=== PATIENT | female | born 1980 | race Caucasian/White ===

== ENCOUNTER 2016-07-22 12:24 | Emergency (ER) | payer OTHER ==
[2016-07-22 14:56] VITALS: BP 106/60
--- NOTE | 2016-07-22 15:34 | UC ---
Throat Pain/Nasal Martinez HPI - HPI Summary HPI Summary: tongue looks like there is a yellowish coating on it. Not painful, but she does have a white spot and some soreness back further in throat. Exposed to an infant with thrush, she is worried about that. NO fever. No URI symptoms otherwise. No recent antibiotics. No immunosuppressants - History of Current Complaint Chief Complaint: UCGeneralIllness Stated Complaint: ORAL COMPLAINT Time Seen by Provider: 07/22/16 14:57 Hx Obtained From: Patient Hx Last Menstrual Period: CURRENT ?: No Onset/Duration: Gradual Onset Severity: Mild Cough: Nonproductive Associated Signs & Symptoms: Positive: Dysphagia - mild - Epiglottits Risk Factors Epiglottis Risk Factors: Negative - Allergies/Home Medications Allergies/Adverse Reactions: Allergies Allergy/AdvReac Type Severity Reaction Status Date / Time Sulfa Drugs Allergy Intermediate Vomiting Verified 07/22/16 14:56 Naproxen Allergy Mild GI Upset Verified 07/22/16 14:56 Latex Allergy Rash Verified 07/22/16 14:56 PMH/Surg Hx/FS Hx/Imm Hx Previously Healthy: Yes Endocrine History Of: Denies: Diabetes, Thyroid Disease Cardiovascular History Of: Denies: Cardiac Disorders, Hypertension, Pacemaker/ICD Respiratory History Of: Denies: COPD, Asthma GI/ History Of: Denies: Ulcer Neurological History Of: Reports: Migraine - A TEEN FOLLOWING A CONCUSSION - Surgical History Surgical History: Yes Surgery Procedure, Year, and Place: 10/2014 LEFT KNEE ARTHROSCOPIC MENISCUS REPAIR, CHONDROPLASTY, MEDIAL PLICA EXCISION, [facility] [place]. 08/2015 LEFT KNEE ARTHROSCOPIC PARTIAL MEDIAL AND LATERAL MENISCECTOMY WITH BIOCARTILAGE TO MEDIAL FEMORAL CONDYLE, REMOVAL OF FOREIGN BODIES, [facility] [place]. 05/09 - left knee scar tissue removal - Family History Known Family History: Positive: None, Other - positive FM for URI - Social History Occupation: Employed Full-time Lives: With Family Alcohol Use: None Substance Use Type: None Smoking Status (MU): Light Every Day Tobacco Smoker Type: Cigarettes Amount Used/How Often: 1 ppd for about 20 years Length of Time of Smoking/Using Tobacco: APPROX 20 YEARS Have You Smoked in the Last Year: Yes When Did the Patient Quit Smoking/Using Tobacco: 05/02/2016 PATCH USED OCCASSIONALLY Household Exposure Type: Cigarettes - Immunization History Most Recent Influenza Vaccination: not this season Review of Systems Constitutional: Negative Skin: Negative Eyes: Negative ENT: Other - tongue coating, white spot on gums Respiratory: Negative Cardiovascular: Negative Gastrointestinal: Negative Genitourinary: Negative Motor: Negative Neurovascular: Negative Musculoskeletal: Negative Neurological: Negative Psychological: Negative All Other Systems Reviewed And Are Negative: Yes Physical Exam Triage Information Reviewed: Yes Appearance: Well-Appearing, No Pain Distress, Well-Nourished Vital Signs: Initial Vital Signs Temp 99.4 F 07/22/16 14:51 Pulse 63 07/22/16 14:51 Resp 16 07/22/16 14:51 BP 106/60 07/22/16 14:51 Pulse Ox 98 07/22/16 14:51 Vital Signs Reviewed: Yes Eye Exam: Normal ENT: Positive: Hearing grossly normal, Pharynx normal, TMs normal, Other: - one tiny white spot behind left lower molar; looks like a spot of mucus, but when wiped away it returns. ? small draining sore? Tongue has a yellowish, thick coating. No redness. No bleeding. Not tender. Negative: Tonsillar swelling, Tonsillar exudate, Trismus, Muffled/hoarse voice Throat Pain/Nasal Course/Dx - Differential Dx/Diagnosis Provider Diagnoses: coated tongue Discharge - Discharge Plan Condition: Stable Disposition: HOME Prescriptions: Clotrimazole SELMA* [Mycelex Selma*] 10 mg MT SEE INSTRUCTIONS #20 selma Referrals: Manda Sanchez NP [Primary Care Provider] - Additional Instructions: Your tongue appears to have a "coating" that is common with minor upper respiratory illnesses. The thickened, whitish yellow discoloration will resolve itself as the illness goes on. You can try sucking on clotrimazole lozenges
== END 2016-07-22 15:40 | disposition home or self-care (01) ==
LOC: UCCORT 12:24
DX: K14.3 Hypertrophy of tongue papillae (principal); R13.10 Dysphagia, unspecified; Z88.6 Allergy status to analgesic agent; Z88.2 Allergy status to sulfonamides; F17.210 Nicotine dependence, cigarettes, uncomplicated
CPT/HCPCS: 87651; 99212; G0463

== ENCOUNTER 2016-09-17 16:44 | Emergency (ER) | payer OTHER ==
[2016-09-17 17:01] VITALS: BP 108/71
--- NOTE | 2016-09-17 17:04 | UC ---
Cardiac HPI - HPI Summary HPI Summary: chest pain multiple times since 09/14/16. maximum time duration 10minutes. was diaphoretic with the CP. Pain awoke her from sleep 0130 09/16/16. Today pain radiates to left arm which feels "sore". No fever, no cough, no URI sxs. No hx DVT. Had left knee surg Apr 2016. No calf pain. Tried pepto bismol without relief. Pt with hx heart murmur, does not know if it is MVP or not. - History of Current Complaint Chief Complaint: UCChestPain Stated Complaint: CHEST PAIN Time Seen by Provider: 09/17/16 16:47 Hx Obtained From: Patient Onset/Duration: Gradual Onset, Lasting Days, Still Present Timing: Intermittent Episodes Lasting: - 10 minutes Initial Severity: Moderate Current Severity: Moderate Pain Intensity: 0 Chest Pain Location: Discrete at:, Left Anterior Character: Sharp/Stabbing Aggravating: Nothing Alleviating: Nothing Associated Signs & Symptoms: Positive: Chest Pain, Recent Stress, Diaphoresis. Negative: Numbness, Tingling, SOB, Fever, Cough, Calf Pain/Swelling - Risk Factors Pulmonary Embolism Risk Factors: Smoking Cardiac Risk Factors: Smoking Atrial Fibrillation: Negative TAD Risk Factors: Smoking AMI/ACS Risk Factors: Smoking - Allergy/Home Medications Allergies/Adverse Reactions: Allergies Allergy/AdvReac Type Severity Reaction Status Date / Time Sulfa Drugs Allergy Intermediate Vomiting Verified 09/17/16 17:01 Naproxen Allergy Mild GI Upset Verified 09/17/16 17:01 Latex Allergy Rash Verified 09/17/16 17:01 Home Medications: Home Medications Bismuth Subsalicylate [Pepto Bismol] 262 mg PO DAILY PRN 09/17/16 [History Confirmed 09/17/16] PMH/Surg Hx/FS Hx/Imm Hx Endocrine History Of: Denies: Diabetes, Thyroid Disease Cardiovascular History Of: Reports: Cardiac Disorders - MURMUR Denies: Hypertension, Pacemaker/ICD Respiratory History Of: Denies: COPD, Asthma GI/ History Of: Denies: Ulcer Neurological History Of: Reports: Migraine - A TEEN FOLLOWING A CONCUSSION - Surgical History Surgical History: Yes Surgery Procedure, Year, and Place: 10/2014 LEFT KNEE ARTHROSCOPIC MENISCUS REPAIR, CHONDROPLASTY, MEDIAL PLICA EXCISION, [facility]. 08/2015 LEFT KNEE ARTHROSCOPIC PARTIAL MEDIAL AND LATERAL MENISCECTOMY WITH BIOCARTILAGE TO MEDIAL FEMORAL CONDYLE, REMOVAL OF FOREIGN BODIES, [facility]. 05/09 - left knee scar tissue removal - Family History Known Family History: Positive: Other - no fam hx DVT or PE - Social History Occupation: Employed Full-time - 2 jobs Lives: With Family Alcohol Use: None Substance Use Type: None Smoking Status (MU): Light Every Day Tobacco Smoker Type: Cigarettes Amount Used/How Often: OCCASSIONAL Length of Time of Smoking/Using Tobacco: APPROX 20 YEARS Have You Smoked in the Last Year: Yes When Did the Patient Quit Smoking/Using Tobacco: 05/02/2016 PATCH USED OCCASSIONALLY Household Exposure Type: Cigarettes - Immunization History Most Recent Influenza Vaccination: not this season Review of Systems Constitutional: Negative ENT: Negative Respiratory: Negative Cardiovascular: Chest Pain Gastrointestinal: Negative Musculoskeletal: Negative Neurological: Negative Psychological: Negative All Other Systems Reviewed And Are Negative: Yes Physical Exam Triage Information Reviewed: Yes Appearance: Well-Nourished, Ill-Appearing, Pain Distress Vital Signs: Initial Vital Signs Pulse 68 09/17/16 16:54 Resp 20 09/17/16 16:54 BP 108/71 09/17/16 16:54 Pulse Ox 99 09/17/16 16:54 Vital Signs Reviewed: Yes Eyes: Positive: Conjunctiva Clear ENT: Positive: Hearing grossly normal, Pharynx normal, TMs normal. Negative: Muffled/hoarse voice Neck: Positive: Supple, Nontender, No Lymphadenopathy Respiratory: Positive: Lungs clear, Normal breath sounds, No respiratory distress, No accessory muscle use Cardiovascular: Positive: RRR, No Murmur, Pulses Normal, Brisk Capillary Refill Abdomen Description: Positive: Nontender, No Organomegaly, Soft. Negative: Distended, Guarding, Hepatomegaly, McBurney's Point Tenderness, Peritoneal Signs , Pulsatile Mass, Splenomegaly Bowel Sounds: Positive: Present Musculoskeletal: Positive: Strength Intact, ROM Intact Neurological: Positive: Alert, Muscle Tone Normal Psychological Exam: Normal Skin Exam: Normal - Differential Diagnoses - Chest Pain Differential Diagnosis/HQI/PQRI: Acute VA, ACS, Angina, Chest Wall, GI Disease, Lower Respiratory Infection, Pulmonary Embolism - Clinical Impression Provider Diagnoses: acute chest pain. tobacco abuse disorder - Physician Notifications Time Discussed With Above Provider: 17:30 - Monica Mccain NP Instructed by Provider To: MD Will See In ED Discharge - Discharge Plan Condition: Stable Disposition: AGAINST MEDICAL ADVICE Discharge Disposition Comment: pt going by private car to [facility]
== END 2016-09-17 17:55 | disposition home or self-care (01) ==
LOC: UCCORT 16:44
DX: R07.89 Other chest pain (principal); Z88.6 Allergy status to analgesic agent; Z88.2 Allergy status to sulfonamides; F17.210 Nicotine dependence, cigarettes, uncomplicated
CPT/HCPCS: 93005; 99211; G0463

== ENCOUNTER 2017-02-16 11:28 | Emergency (ER) | payer OTHER ==
[2017-02-16 13:43] VITALS: BP 102/65
--- NOTE | 2017-02-16 14:15 | UC ---
Complaint Female HPI - HPI Summary HPI Summary: patient recently stopped taking the pill and has been having on and off bleeding for the past month. she is concerned with some itching and irritation due to the frequent tampon use. there is occasional burning with urination - History Of Current Complaint Chief Complaint: UCGU Stated Complaint: PERSONAL Time Seen by Provider: 02/16/17 13:46 Hx Obtained From: Patient Hx Last Menstrual Period: 12/27/16 - has had consistent bleeding since Onset/Duration: Sudden Onset, Lasting Weeks Timing: Lasting Weeks Severity Initially: Mild Severity Currently: Moderate Character: Burning Aggravating Factor(s): Urination Alleviating Factor(s): Position Associated Signs And Symptoms: Positive: Vaginal Bleeding/Discharge - Allergies/Home Medications Allergies/Adverse Reactions: Allergies Allergy/AdvReac Type Severity Reaction Status Date / Time Sulfa Drugs Allergy Intermediate Vomiting Verified 02/16/17 13:30 Naproxen Allergy Mild GI Upset Verified 02/16/17 13:30 Latex Allergy Rash Verified 02/16/17 13:30 PMH/Surg Hx/FS Hx/Imm Hx Previously Healthy: Yes - Surgical History Surgical History: Yes Surgery Procedure, Year, and Place: 10/2014 LEFT KNEE ARTHROSCOPIC MENISCUS REPAIR, CHONDROPLASTY, MEDIAL PLICA EXCISION, [facility] [place]. 08/2015 LEFT KNEE ARTHROSCOPIC PARTIAL MEDIAL AND LATERAL MENISCECTOMY WITH BIOCARTILAGE TO MEDIAL FEMORAL CONDYLE, REMOVAL OF FOREIGN BODIES, [facility] [place]. 05/09 - left knee scar tissue removal - Family History Known Family History: Positive: None, Other - no fam hx DVT or PE - Social History Alcohol Use: None Substance Use Type: None Smoking Status (MU): Heavy Every Day Tobacco Smoker Type: Cigarettes Amount Used/How Often: 1/2 PPD Length of Time of Smoking/Using Tobacco: APPROX 20 YEARS Have You Smoked in the Last Year: Yes When Did the Patient Quit Smoking/Using Tobacco: 05/02/2016 PATCH USED OCCASSIONALLY Household Exposure Type: Cigarettes - Immunization History Most Recent Influenza Vaccination: not this season Review of Systems Constitutional: Negative Skin: Negative Eyes: Negative ENT: Negative Respiratory: Negative Cardiovascular: Negative Gastrointestinal: Abdominal Pain Genitourinary: Dysuria, Hematuria Motor: Negative Neurovascular: Negative Musculoskeletal: Negative Neurological: Negative Psychological: Negative All Other Systems Reviewed And Are Negative: Yes Physical Exam Triage Information Reviewed: Yes Appearance: Well-Appearing, Well-Nourished, Pain Distress Vital Signs: Initial Vital Signs Temp 99.8 F 02/16/17 13:31 Pulse 77 02/16/17 13:31 Resp 16 02/16/17 13:31 BP 102/65 02/16/17 13:31 Pulse Ox 100 02/16/17 13:31 Vital Signs Reviewed: Yes Eye Exam: Normal ENT Exam: Normal Dental Exam: Normal Neck exam: Normal Respiratory Exam: Normal Respiratory: Positive: Chest non-tender, Lungs clear, Normal breath sounds Cardiovascular Exam: Normal Cardiovascular: Positive: RRR, No Murmur, Pulses Normal Abdominal Exam: Normal Abdomen Description: Positive: Nontender, No Organomegaly, Other: - perineum red , no lesions noted,: deferred pelvic Bowel Sounds: Positive: Present Musculoskeletal Exam: Normal Neurological Exam: Normal Psychological Exam: Normal Skin Exam: Normal Complaint Female Dx - Course Course Of Treatment: hx obtained, medication reviewed, exam performed, educated on symptom relief - Differential Dx/Diagnosis Differential Diagnosis/HQI/PQRI: Urinary Tract Infection, Other - vaginitis Provider Diagnoses: vaginitis. dysmennorhea Discharge - Discharge Plan Condition: Stable Disposition: HOME Patient Education Materials: Dysfunctional Uterine Bleeding (ED) Additional Instructions: 1. use the coconut oil as we discussed, 2. Increase fluid intake 3. Follow up with Manda Sanchez if the irregular bleeding continues
== END 2017-02-16 14:22 | disposition home or self-care (01) ==
LOC: UCCORT 11:28
DX: N76.0 Acute vaginitis (principal); N94.6 Dysmenorrhea, unspecified; R30.0 Dysuria; Z88.2 Allergy status to sulfonamides; Z88.6 Allergy status to analgesic agent; Z91.040 Latex allergy status; F17.210 Nicotine dependence, cigarettes, uncomplicated
CPT/HCPCS: 81003; 99211; G0463